=== PATIENT | female | born 1930 | race Caucasian/White ===

== ENCOUNTER 2017-02-11 11:35 | Observation (INO) | payer MEDICARE, OTHER ==
[2017-02-19] MEDS ORDERED: KLOR-CON-1010 MEQ PO (10:09)
[2017-02-19] MEDS ORDERED: PLAVIX75 MG PO (10:09)
[2017-02-19] MEDS ORDERED: ASPIR 8181 MG PO (10:09)
[2017-02-19] MEDS ORDERED: METOPROLOL TART25 MG PO (10:10)
[2017-02-19] MEDS ORDERED: LASIX20 MG PO (10:10)
[2017-02-19] MEDS ORDERED: ALDACTONE25 MG PO (10:10)
[2017-02-19] MEDS ORDERED: LANOXIN125 MCG PO (10:10)
[2017-02-19] MEDS ORDERED: MIRTAZAPINE15 MG PO (10:11)
[2017-02-19] MEDS ORDERED: NITROQUICK0.4 MG SL (10:11)
[2017-02-19] MEDS ORDERED: SENNA8.6 MG PO (10:11)
[2017-02-19] MEDS ORDERED: COZAAR25 MG PO (10:11)
[2017-02-19] MEDS ORDERED: DAILY VITE1 EACH PO (10:12)
[2017-02-19] MEDS ORDERED: CULTURELLE1 EACH PO (10:12)
[2017-02-19] MEDS ORDERED: [UNRECOGNIZED DRUG - OTHER] OU (10:12)
[2017-02-19] MEDS ORDERED: ALPHAGAN P OU (10:12)
[2017-02-19] MEDS ORDERED: CLARITIN10 MG PO (10:12)
[2017-02-19] MEDS ORDERED: TYLENOL EXTRA500 MG PO (10:13)
[2017-02-19] MEDS ORDERED: ISOSORBIDE MONO60 MG PO (10:13)
[2017-02-19] MEDS ORDERED: SURFAK240 MG PO (10:13)
[2017-02-19] MEDS ORDERED: TAMIFLU75 MG PO (10:14)
[2017-02-19] MEDS ORDERED: ZETIA10 MG PO (10:14)
== END 2017-02-13 16:40 | disposition home or self-care (01) ==
LOC: ER 11:35 → MED 15:46
PROVIDERS: ADMIT Internal Medicine
DX: J10.1 Influenza due to other identified influenza virus with other respiratory manifestations (principal); F03.90 Unspecified dementia, unspecified severity, without behavioral disturbance, psychotic disturbance, mood disturbance, and anxiety; I11.0 Hypertensive heart disease with heart failure; I50.20 Unspecified systolic (congestive) heart failure; H40.9 Unspecified glaucoma; E78.5 Hyperlipidemia, unspecified; I25.10 Atherosclerotic heart disease of native coronary artery without angina pectoris; I34.0 Nonrheumatic mitral (valve) insufficiency; Z86.73 Personal history of transient ischemic attack (TIA), and cerebral infarction without residual deficits; Z86.74 Personal history of sudden cardiac arrest; Z79.82 Long term (current) use of aspirin; Z79.02 Long term (current) use of antithrombotics/antiplatelets; Z79.899 Other long term (current) drug therapy; Z98.49 Cataract extraction status, unspecified eye; Z88.8 Allergy status to other drugs, medicaments and biological substances
CPT/HCPCS: 36415; 87502; 93306; 96372; 97162-GP; 97165; G0378; J1650

== ENCOUNTER 2017-02-11 11:35 | Emergency (ER) | payer MEDICARE, OTHER ==
[2017-02-19] MEDS ORDERED: PLAVIX75 MG PO (10:09)
[2017-02-19] MEDS ORDERED: ASPIR 8181 MG PO (10:09)
[2017-02-19] MEDS ORDERED: KLOR-CON-1010 MEQ PO (10:09)
[2017-02-19] MEDS ORDERED: LASIX20 MG PO (10:10)
[2017-02-19] MEDS ORDERED: ALDACTONE25 MG PO (10:10)
[2017-02-19] MEDS ORDERED: LANOXIN125 MCG PO (10:10)
[2017-02-19] MEDS ORDERED: METOPROLOL TART25 MG PO (10:10)
[2017-02-19] MEDS ORDERED: MIRTAZAPINE15 MG PO (10:11)
[2017-02-19] MEDS ORDERED: NITROQUICK0.4 MG SL (10:11)
[2017-02-19] MEDS ORDERED: SENNA8.6 MG PO (10:11)
[2017-02-19] MEDS ORDERED: COZAAR25 MG PO (10:11)
[2017-02-19] MEDS ORDERED: DAILY VITE1 EACH PO (10:12)
[2017-02-19] MEDS ORDERED: CLARITIN10 MG PO (10:12)
[2017-02-19] MEDS ORDERED: [UNRECOGNIZED DRUG - OTHER] OU (10:12)
[2017-02-19] MEDS ORDERED: ALPHAGAN P OU (10:12)
[2017-02-19] MEDS ORDERED: CULTURELLE1 EACH PO (10:12)
[2017-02-19] MEDS ORDERED: TYLENOL EXTRA500 MG PO (10:13)
[2017-02-19] MEDS ORDERED: ISOSORBIDE MONO60 MG PO (10:13)
[2017-02-19] MEDS ORDERED: SURFAK240 MG PO (10:13)
[2017-02-19] MEDS ORDERED: ZETIA10 MG PO (10:14)
[2017-02-19] MEDS ORDERED: TAMIFLU75 MG PO (10:14)
== END 2017-02-11 15:45 | disposition critical access hospital (66) ==
LOC: ER 11:35
DX: R55 Syncope and collapse (principal); R41.82 Altered mental status, unspecified; I10 Essential (primary) hypertension; I25.10 Atherosclerotic heart disease of native coronary artery without angina pectoris; Z79.82 Long term (current) use of aspirin; Z79.02 Long term (current) use of antithrombotics/antiplatelets; Z79.899 Other long term (current) drug therapy
CPT/HCPCS: 51701